=== PATIENT | male | born 1960 | race Asian ===

== ENCOUNTER 2020-07-14 19:13 | Emergency (ER) | payer OTHER ==
[~2020-07-14] VITALS: Ht 193 cm; Wt 98.9 kg
[2020-07-14 20:39] VITALS: BP 128/78; TEMP 98.1
== END 2020-07-14 20:39 | disposition still patient (30) ==
LOC: ED 19:13
DX: S05.02XA Injury of conjunctiva and corneal abrasion without foreign body, left eye, initial encounter (principal); W22.8XXA Striking against or struck by other objects, initial encounter; Y92.89 Other specified places as the place of occurrence of the external cause
CPT/HCPCS: 99283